=== PATIENT | male | born 1935 | race Caucasian/White ===

== ENCOUNTER 2017-01-05 08:10 | Inpatient (IN) | payer OTHER ==
[2017-01-02 12:18] LABS: HEMATOCRIT 40.3 % (40.0-51.0); HEMOGLOBIN 13.8 g/dL (13.6-17.8)
[2017-01-02 12:29] LABS: BUN (BLOOD UREA NITROGEN) 12 MG/DL (6-23); CALCIUM, SERUM 8.7 MG/DL (8.5-10.4); CHLORIDE, SERUM 106 MMOL/L (96-112); CO2 (CARBON DIOXIDE) 29 MMOL/L (24-34); CREATININE 1.17 MG/DL (0.70-1.30); GFR AFRICAN AMERICAN 68 ML/MIN (>=60); GFR NON AFRICAN AMERICAN 59 ML/MIN (>=60); GLUCOSE, SERUM 184 MG/DL (60-99); POTASSIUM, SERUM 4.4 MMOL/L (3.5-5.3); SODIUM, SERUM 141 MMOL/L (135-148)
[2017-01-02 12:32] LABS: ASCORBIC ACID (UR NOT ORDER) NEG (NEG); BILIRUBIN, URINE NEGATIVE (NEG); KETONE, URINE NEGATIVE (NEG); LEUKOCYTE ESTERASE(NOT OR NEG (NEG); WBC (NOT ORDERED) (RFLEX) < 1 (0-5)
--- NOTE | ~2017-01-05 | DS ---
Discharge Summary [facility] [address] [place]. [address] NAME: RAZIA CHANEY : 39 STATUS : DIS IN PAT#: [id number] AGE: 81 ADM/REG DATE : 01/05/17 MR#: [id number] REPORT SERV DATE: 01/14/17 DICTATED BY: PRASHANT COHEN DATE: 01/13/17 REPORT STATUS : Draft TRANSCRIBED BY: MODL DATE: 01/13/17 ADMISSION DATE: 01/05/2017 DISCHARGE DATE: 01/08/2017 PROCEDURES: 1. Right robot-assisted laparoscopic partial nephrectomy. 2. Intraoperative ultrasound of right kidney. DISCHARGE DIAGNOSES: 1. Right renal mass. 2. Cardiac disease. HOSPITAL COURSE: Mr. Chaney is a very pleasant gentleman with a right renal mass. He was counseled regarding his options. On the date of admission, he underwent a robotic assisted laparoscopic right partial nephrectomy. He tolerated the procedure well. There were no major complications. For full operative details, see my operative note. Postoperatively, he was transferred to the recovery room, then to the floor in stable condition. During hospitalization, he remained afebrile, his vital signs remained within normal limits. Given his cardiac disease, he was started on aspirin postoperatively. During his hospitalization, his Rainey catheter and JENNIFER drain placed during surgery were removed. Diet was gradually advanced to a regular diet, which he has tolerated by the time of discharge. On the day of discharge, he was tolerating regular diet, his pain is well controlled on oral pain medication, and he is ambulating independently. He has been deemed medically fit for home and was discharged to home. DISCHARGE MEDICATIONS: Please see discharge medicine reconciliation work sheet. DISCHARGE INSTRUCTIONS: Please see my preprinted discharge instructions. FOLLOWUP: Please follow up with me in clinic in two weeks' time. SANTI/YAHAIRA Prashant Cohen MD / [id number] CC: Prashant Cohen MD
--- NOTE | ~2017-01-05 | OP ---
Record Of Operation [facility] [address] [place]. [address] NAME: RAZIA RUVALCABA : 39 STATUS : ADM IN PAT#: [id number] AGE: 81 ADM/REG DATE : 01/05/17 MR#: [id number] REPORT SERV DATE: 01/05/17 DICTATED BY: PRASHANT COHEN DATE: 01/05/17 REPORT STATUS : Draft TRANSCRIBED BY: MODL DATE: 01/05/17 DATE OF PROCEDURE: 01/05/2017 SURGEON: Prashant Cohen M.D. TITLE OF OPERATION: 1. Right robot-assisted laparoscopic partial nephrectomy. 2. Intraoperative ultrasound of right kidney. PREOPERATIVE DIAGNOSIS: Right renal mass. POSTOPERATIVE DIAGNOSIS: Right renal mass. INDICATIONS: Mr. Cohen is a 81-year-old male, with a 3 cm lower pole right renal mass. He was consented regarding his options including ablation, surveillance, and surgery. This is a cystic mass, ablation is not the best choice. He has elected for partial nephrectomy. ANESTHESIA: General. COMPLICATIONS: None. IMPLANTS: 1. A 16-Ukrainian Rainey catheter. 2. A #10 JENNIFER drain. SPECIMEN: Right renal mass. NARRATIVE: The patient was brought to the operating room, identified by his wristband. General anesthesia was induced, and Ancef was given for preoperative antibiotics. Arterial line and central access was performed by the Anesthesia Team given his cardiac history. A 16-Ukrainian Rainey catheter was placed into his bladder, the balloon was inflated with 10 mL of sterile water. The patient was then placed in the modified right flank position, and prepped and draped in sterile fashion. He was secured to the bed with pads and tape. His abdomen was insufflated to a pressure of 15 mmHg using a Veress needle. An 8 mm port was placed in the right upper quadrant under direct vision. The abdomen was inspected, there were no adhesions. Standard X-Y port placement was performed for a partial nephrectomy with four 8 mm ports placed in the midclavicular line on the right side. A 12 mm port was placed in a supraumbilical position as an gift shop assistant port and a 5 mm port was placed underneath the xiphoid process. A locking grasper was placed through the port and the liver was retracted cephalad. The operation was begun and the robot was docked. I dropped the colon along the white line of Toldt exposing the retroperitoneum. This was reflected medially to expose the duodenum which was sharply Kocherized as care taken not to injure the duodenum. The IVC was identified. I entered the retroperitoneum right above the inferior vena cava reflecting the ureter superiorly and leaving the gonadal vein on the cava. All fibrofatty tissue overlying the hilum was sharply dissected with cautery. There were three renal arteries, two beneath the renal vein and one above. Next, the kidney was dropped back down to its orthotopic Record Of Operation [facility] [address] [facility] [place]. [address] NAME: RAZIA RUVALCABA : 39 STATUS : ADM IN PAT#: [id number] AGE: 81 ADM/REG DATE : 01/05/17 MR#: [id number] REPORT SERV DATE: 01/05/17 DICTATED BY: PRASHANT COHEN DATE: 01/05/17 REPORT STATUS : Draft TRANSCRIBED BY: YAHAIRA DATE: 01/05/17 position. The tumor was dissected out on the kidney. There was a dense inflammatory reaction around the kidney tumor, fat was left on the tumor for this reason. The robotic ultrasound was then used and the margins of the kidney were identified. Documented images were taken and placed in the chart for documentation. Next, the two lower pole arteries were occluded with robotic bulldog clamps. The kidney tumor was resected leaving normal tissue on the mass. The collecting system was entered. Next using two 3-0 V-Loc sutures the base of the tumor was run in a perpendicular fashion with care taken to close the collecting system. Early un-clamping was performed. The ischemia time was 15 minutes. There was some ongoing bleeding after un-clamping the arteries. The renorrhaphy was then performed with 2-0 Vicryl suture using a sliding Weck technique. Eventually all bleeding was stopped. There was no evidence of a urine leak. The Gerota's fascia was reapproximated and the surgical dressing was placed. The tumor was placed into an EndoCatch bag as were the bulldogs. There was no ongoing bleeding with these placed in the abdomen. The robotic ports were removed under direct vision. The gift shop assistant port was enlarged at the skin and fascia level, and the tumor and bulldogs were removed. The skin and fascia were closed with 0 Monocryl suture in a [id number] fashion. The wounds were irrigated clear. A 0.25% Marcaine was used for anesthesia. The patient was awoken from anesthesia and transferred to recovery room in stable condition. There were no complications. A #10 JENNIFER drain was placed to the inferior most robotic port prior to closure. This was sewn in place with the 2-0 Prolene suture. SANTI/YAHAIRA Prashant Cohen MD / [id number] CC: Prashant Cohen MD
[~2017-01-05 08:10] MED LIST: AMARYL4 PO; ARICEPT10 PO; ASA5GR PO; COREG12 PO; CRESTOR10 PO; GLUCOPHAGE1000 MG; KLOR-CON M2020 MEQ PO; L40 PO; LAN125 PO; LANTUSCART SC; NEUR300 PO; PRIN20 PO; Z300 PO
[2017-01-05 15:07] LABS: BASOPHILS 0.2 %; BASOPHILS ABSOLUTE 0.01 10/3/uL (0.0-0.16); EOSINOPHILS 1.2 %; EOSINOPHILS ABSOLUTE 0.05 10/3/uL (0.0-0.53); HEMATOCRIT 38.7 % (40.0-51.0); HEMOGLOBIN 13.1 g/dL (13.6-17.8); IMMATURE GRANULOCYTES 0.2 %; IMMATURE GRANULOCYTES ABSOLUTE 0.01 10/3/uL (0.0-0.11); LYMPHOCYTES 16.1 %; LYMPHOCYTES ABSOLUTE 0.67 10/3/uL (0.67-4.30); MEAN CORPUS HGB CONC 33.9 g/dL (32.0-36.0); MEAN CORPUSCULAR HEMOGLOB 30.7 pg (26.0-34.0); MEAN CORPUSCULAR VOLUME 90.6 fL (80-100); MEAN PLATELET VOLUME 8.8 fL (9.2-13.0); MONOCYTES 3.4 %; MONOCYTES ABSOLUTE 0.14 10/3/uL (0.21-1.20); NEUTROPHILS 78.9 %; NEUTROPHILS ABSOLUTE 3.29 10/3/uL (2.02-8.40); RBC DISTRIBUTION WIDTH 13.8 % (12.0-16.0); RED CELL COUNT 4.27 10/6/uL (4.7-6.1); WHITE BLOOD CELLS 4.2 10/3/uL (4.5-10.5)
[2017-01-05 15:17] LABS: BUN (BLOOD UREA NITROGEN) 12 MG/DL (6-23); CALCIUM, SERUM 8.1 MG/DL (8.5-10.4); CHLORIDE, SERUM 105 MMOL/L (96-112); CO2 (CARBON DIOXIDE) 25 MMOL/L (24-34); CREATININE 1.17 MG/DL (0.70-1.30); GFR AFRICAN AMERICAN 68 ML/MIN (>=60); GFR NON AFRICAN AMERICAN 59 ML/MIN (>=60); GLUCOSE, SERUM 135 MG/DL (60-99); MANUAL DIFF NO %; PLATELET COUNT 86 10/3/uL (150-400); POTASSIUM, SERUM 4.3 MMOL/L (3.5-5.3); SODIUM, SERUM 139 MMOL/L (135-148)
[2017-01-06 06:27] LABS: BASOPHILS 0.1 %; BASOPHILS ABSOLUTE 0.01 10/3/uL (0.0-0.16); EOSINOPHILS 0 %; HEMATOCRIT 38.7 % (40.0-51.0); HEMOGLOBIN 13.3 g/dL (13.6-17.8); IMMATURE GRANULOCYTES 0.1 %; IMMATURE GRANULOCYTES ABSOLUTE 0.01 10/3/uL (0.0-0.11); LYMPHOCYTES 13.9 %; LYMPHOCYTES ABSOLUTE 0.94 10/3/uL (0.67-4.30); MEAN CORPUS HGB CONC 34.4 g/dL (32.0-36.0); MEAN CORPUSCULAR HEMOGLOB 31.3 pg (26.0-34.0); MEAN CORPUSCULAR VOLUME 91.1 fL (80-100); MEAN PLATELET VOLUME 9.4 fL (9.2-13.0); MONOCYTES 11.8 %; NEUTROPHILS 74.1 %; NEUTROPHILS ABSOLUTE 5.01 10/3/uL (2.02-8.40); PLATELET COUNT 111 10/3/uL (150-400); RBC DISTRIBUTION WIDTH 13.6 % (12.0-16.0); RED CELL COUNT 4.25 10/6/uL (4.7-6.1)
[2017-01-06 06:29] LABS: MANUAL DIFF NO %; WHITE BLOOD CELLS 6.8 10/3/uL (4.5-10.5)
[2017-01-06 06:31] LABS: BUN (BLOOD UREA NITROGEN) 15 MG/DL (6-23); CALCIUM, SERUM 7.9 MG/DL (8.5-10.4); CHLORIDE, SERUM 103 MMOL/L (96-112); CO2 (CARBON DIOXIDE) 26 MMOL/L (24-34); CREATININE 1.35 MG/DL (0.70-1.30); GFR AFRICAN AMERICAN 57 ML/MIN (>=60); GFR NON AFRICAN AMERICAN 50 ML/MIN (>=60); GLUCOSE, SERUM 132 MG/DL (60-99); POTASSIUM, SERUM 4.4 MMOL/L (3.5-5.3); SODIUM, SERUM 140 MMOL/L (135-148)
[2017-01-07 05:20] LABS: BASOPHILS 0.2 %; BASOPHILS ABSOLUTE 0.01 10/3/uL (0.0-0.16); EOSINOPHILS 0.8 %; EOSINOPHILS ABSOLUTE 0.05 10/3/uL (0.0-0.53); HEMATOCRIT 33.6 % (40.0-51.0); HEMOGLOBIN 11.4 g/dL (13.6-17.8); IMMATURE GRANULOCYTES 0.3 %; IMMATURE GRANULOCYTES ABSOLUTE 0.02 10/3/uL (0.0-0.11); LYMPHOCYTES 20.5 %; LYMPHOCYTES ABSOLUTE 1.31 10/3/uL (0.67-4.30); MANUAL DIFF NO %; MEAN CORPUS HGB CONC 33.9 g/dL (32.0-36.0); MEAN CORPUSCULAR HEMOGLOB 31.1 pg (26.0-34.0); MEAN CORPUSCULAR VOLUME 91.8 fL (80-100); MEAN PLATELET VOLUME 9.2 fL (9.2-13.0); MONOCYTES 11.4 %; MONOCYTES ABSOLUTE 0.73 10/3/uL (0.21-1.20); NEUTROPHILS 66.8 %; NEUTROPHILS ABSOLUTE 4.27 10/3/uL (2.02-8.40); PLATELET COUNT 82 10/3/uL (150-400); RBC DISTRIBUTION WIDTH 13.9 % (12.0-16.0); RED CELL COUNT 3.66 10/6/uL (4.7-6.1); WHITE BLOOD CELLS 6.4 10/3/uL (4.5-10.5)
[2017-01-07 05:31] LABS: CALCIUM, SERUM 7.6 MG/DL (8.5-10.4); CHLORIDE, SERUM 101 MMOL/L (96-112); CO2 (CARBON DIOXIDE) 26 MMOL/L (24-34); GFR AFRICAN AMERICAN 47 ML/MIN (>=60); GFR NON AFRICAN AMERICAN 40 ML/MIN (>=60); GLUCOSE, SERUM 145 MG/DL (60-99); POTASSIUM, SERUM 3.9 MMOL/L (3.5-5.3); SODIUM, SERUM 137 MMOL/L (135-148)
[2017-01-07 05:33] LABS: BUN (BLOOD UREA NITROGEN) 22 MG/DL (6-23)
[2017-01-08] MEDS ORDERED: DSS PO (08:22)
[2017-01-08] MEDS ORDERED: PCET PO (08:23)
== END 2017-01-08 12:03 | disposition home or self-care (01) | DRG 660 ==
LOC: SDC/OF 08:10 → PACU 14:42 → 4SO 16:30
PROVIDERS: Urology
PROC: BT41ZZZ Ultrasonography of Right Kidney (ICD-10-PCS; principal; 2017-01-05 10:30)
PROC: 0TB04ZZ Excision of Right Kidney, Percutaneous Endoscopic Approach (ICD-10-PCS; principal; 2017-01-05 10:30)
PROC: 8E0W4CZ Robotic Assisted Procedure of Trunk Region, Percutaneous Endoscopic Approach (ICD-10-PCS; principal; 2017-01-05 10:30)
DX: N28.89 Other specified disorders of kidney and ureter (principal); I50.1 Left ventricular failure, unspecified; I11.0 Hypertensive heart disease with heart failure; G47.33 Obstructive sleep apnea (adult) (pediatric); Z95.810 Presence of automatic (implantable) cardiac defibrillator; I25.10 Atherosclerotic heart disease of native coronary artery without angina pectoris; E66.9 Obesity, unspecified; Z68.35 Body mass index [BMI] 35.0-35.9, adult; Z95.5 Presence of coronary angioplasty implant and graft; I25.5 Ischemic cardiomyopathy; I25.2 Old myocardial infarction
CPT/HCPCS: 36415; 71010; 80048; 81001; 82570; 82962; 85014; 85018; 85025; 86850; 86900; 86901; 88304; 88305; 88307; 88313; 88341; 88342; 88360; 93005; A9270-GY; C1751; C1769; J0690; J1170; J2250; J2370; J2405; J2710; J2795; J3010